=== PATIENT | male | born 1975 | race Caucasian/White ===

== ENCOUNTER 2019-10-13 15:17 | Emergency (ER) | payer BC ==
--- NOTE | 2019-10-13 15:27 | ERPHSYRPT ---
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 Patient does have a history of asthma. He is concerned about a prior exposure to COVID-19. However he is not certain. Has a history of hypertension as well. He is noticed some left-sided chest pain the last few days. He also has seasonal, environmental allergies and this may be the reason for his cough and sore throat symptoms. Asking for chest x-ray, EKG and as well as testing for the COVID 19 virus. Was treated via phone consultation by Dr. Hill, his primary care provider yesterday, and was placed on Zithromax orally. Timing/Duration: gradual onset (2 days ago), persistent Severity: moderate ENT Location: nose (General), throat Prearrival Treatment: prescription meds (Zithromax) Modifying Factors: Improves With: coughing Associated Symptoms: ear pain (R), ear pain (L), cough, sore throat, other ( Congestion) Allergies/Adverse Reactions: No Known Drug Allergies Allergy (Verified 10/13/19 15:36) Home Medications: Carvedilol 6.25 mg [Coreg 6.25 MG] 6.25 mg PO BID 03/19/15 [History] Levalbuterol Tartrate [Xopenex Hfa] 15 gm IH TID PRN 03/19/15 [History] Lisinopril 5 mg [Zestril 5 MG] 2.5 mg PO DAILY 03/19/15 [History] Omeprazole 20 MG [Prilosec 20 mg] 20 mg PO DAILY 03/19/15 [History] Pravastatin Sodium 40 mg PO QHS 03/19/15 [History] Hx Tetanus, Diphtheria Vaccination/Date Given: No Hx Influenza Vaccination/Date Given: Yes (March 2015) Hx Pneumococcal Vaccination/Date Given: No Travel Risk - International Travel Have you traveled outside of the country in past 3 weeks: No Have you or anyone close to you been diagnosed with or: No Do your reside in a community with a known COVID-19 case?: Yes If Yes where:: [facility] - Coronavirus Screening Has patient experienced Coronavirus symptoms: No - Review of Systems Constitutional: No Symptoms Eyes: No Symptoms Ears, Nose, & Throat: Nose Congestion, Throat Pain Respiratory: Cough Cardiac: No Symptoms Abdominal/Gastrointestinal: No Symptoms Genitourinary Symptoms: No Symptoms Musculoskeletal: No Symptoms Skin: No Symptoms Neurological: No Symptoms Psychological: No Symptoms Endocrine: No Symptoms Hematologic/Lymphatic: No Symptoms Immunological/Allergic: No Symptoms All Other Systems: Reviewed and Negative - Past Medical History Pertinent Past Medical History: Yes Neurological History: Migraines ENT History: No Pertinent History Cardiac History: High Cholesterol, Hypertension Respiratory History: Asthma, Sleep Apnea Endocrine Medical History: No Pertinent History Musculoskeletal History: No Pertinent History GI Medical History: Irritable Bowel History: Other Psycho-Social History: No Pertinent History Male Reproductive Disorders: No Pertinent History Other Medical History: Kidney stones - Past Surgical History Past Surgical History: Yes Neuro Surgical History: No Pertinent History Cardiac: No Pertinent History Respiratory: No Pertinent History Gastrointestinal: No Pertinent History Genitourinary: No Pertinent History Musculoskeletal: Orthopedic Surgery Male Surgical History: Vasectomy Other Surgical History: Right shoulder repair of ligaments. Left knee arthroscopic surgery, tonsillectomy. - Social History Smoking Status: Never smoker Exposure to second hand smoke: No Drug Use: none Patient Lives Alone: No - Nursing Vital Signs Nursing Vital Signs: Initial Vital Signs Temperature 96.7 F 10/13/19 15:38 Pulse Rate 88 10/13/19 15:38 Respiratory Rate 18 10/13/19 15:38 Blood Pressure 152/86 10/13/19 15:38 O2 Sat by Pulse Oximetry 99 10/13/19 15:38 Pain Scale Pain Intensity 0 - Physical Exam General Appearance: no apparent distress, alert, anxiety Eye Exam: bilateral eye: normal inspection, PERRL, EOMI Ear Exam: bilateral ear: auricle normal, canal normal, TM normal Nasal Exam: normal inspection Throat Exam: normal, pharynx normal Neck Exam: normal inspection, non-tender, supple, full range of motion, trachea midline, No lymphadenopathy (R), No lymphadenopathy (L) Cardiovascular/Respiratory Exam: chest non-tender, normal breath sounds, regular rate/rhythm, heart sounds normal, no respiratory distress Abdominal Exam: non-tender Neurologic Exam: alert, oriented x 3, cooperative, 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, normal mood/affect, nml cerebellar function, nml station & gait Skin Exam: normal color, warm, dry SpO2 Interpretation: normal O2 Delivery: Room Air - Course Nursing assessment & vital signs reviewed: Yes EKG Interpreted by Me: RATE (79), Sinus Rhythm, NORMAL AXIS, NORMAL INTERVALS, NORMAL QRS, Non-specific ST Changes, Other (There are no significant changes when compared to EKG dated 03/20/2015) Ordered Tests: Active Orders 24 hr Category Date Time Status Impregnator Electrolytic Capacitors STAT Care 10/13/19 16:19 Active EKG-ER Only STAT Care 10/13/19 16:19 Active Pulse Oximetry (ED) STAT Care 10/13/19 16:19 Active CHEST 1 VIEW (PORTABLE) Stat Exams 10/13/19 16:19 Completed CBC W DIFF Stat Lab 10/13/19 16:50 Completed CMP Stat Lab 10/13/19 16:50 Completed TROPONIN Q3H Lab 10/13/19 16:30 Completed TROPONIN Q3H Lab 10/13/19 19:30 Ordered TROPONIN Q3H Lab 10/13/19 22:30 Ordered TROPONIN Q3H Lab 10/14/19 01:30 Ordered TROPONIN Q3H Lab 10/14/19 04:30 Ordered Lab/Rad Data: Laboratory Result Diagrams 10/13/19 16:50 10/13/19 16:50 Laboratory Results 10/13/19 10/13/19 10/13/19 Range/Units 16:50 16:50 16:30 WBC 8.8 (4.0-10.5) K/mm3 RBC 5.17 (4.1-5.6) M/mm3 Hgb 16.1 (12.5-18.0) gm/dl Hct 49.2 (42-50) % MCV 95.2 (78-100) fl MCH 31.1 (26-32) pg MCHC 32.7 (32-36) g/dl RDW 13.2 (11.5-14.0) % Plt Count 211 (150-450) K/mm3 MPV 11.2 H (7.5-11.0) fl Gran % 63.0 (36.0-66.0) % Eos # (Auto) 0.11 (0-0.5) Absolute Lymphs (auto) 2.35 (1.0-4.6) Absolute Monos (auto) 0.75 (0.0-1.3) Lymphocytes % 26.9 (24.0-44.0) % Monocytes % 8.6 (0.0-12.0) % Eosinophils % 1.3 (0.00-5.0) % Basophils % 0.2 (0.0-0.4) % Absolute Granulocytes 5.52 (1.4-6.9) Basophils # 0.02 (0-0.4) Sodium 141 (137-145) mmol/L Potassium 4.0 (3.5-5.1) mmol/L Chloride 100 (98-107) mmol/L Carbon Dioxide 29 (22-30) mmol/L Anion Gap 15.5 H (5-15) MEQ/L BUN 11 (9-20) mg/dL Creatinine 1.01 (0.66-1.25) mg/dL Estimated GFR > 60.0 ML/MIN Glucose 103 (74-106) mg/dL Calcium 10.3 H (8.4-10.2) mg/dL Total Bilirubin 1.10 (0.2-1.3) mg/dL AST 45 (17-59) U/L ALT 50 (0-50) U/L Alkaline Phosphatase 75 (38-126) U/L Troponin I < 0.012 (0.000-0.034) ng/mL Serum Total Protein 8.6 H (6.3-8.2) g/dL Albumin 5.0 (3.5-5.0) g/dL - Progress Progress: unchanged, re-examined Progress Note: 10/13/19 17:00 Chest x-ray reveals no acute process Counseled pt/family regarding: lab results, diagnosis, need for follow-up, rad results - Departure Departure Disposition: Home Clinical Impression: Upper respiratory infection Condition: Stable Critical Care Time: No Referrals: BAUDILIO INGRAM [Family Provider] - Additional Instructions: Plenty of fluids. Take medication as prescribed. Continue your Zithromax antibiotics. Follow-up with primary care doctor for further management Prescriptions: Hydrocodone Bit/Acetaminophen [Hydrocodone-Acetaminophen Soln] 10 ml PO Q6H # 120 ml Prednisone 10 mg [Deltasone 10 mg] 10 mg PO TID #12 tablet
--- NOTE | 2019-10-13 16:42 | XRAY ---
Indication: Cough and sore throat. Comparison: March 19, 2015. Portable apical lordotic chest again demonstrates normal heart, lungs, and bony thorax with incidental small left upper lung calcified granuloma.
[2019-10-13 17:01] LABS: Absolute Neutrophil Ct (ANC) 5.52 (1.4-6.9); BASOPHIL % 0.2 % (0.0-0.4); Basophil (Absolute #) 0.02 (0-0.4); Eosinophil % 1.3 % (0.00-5.0); Eosinophil (Absolute #) 0.11 (0-0.5); Hematocrit 49.2 % (42-50); Hemoglobin 16.1 gm/dl (12.5-18.0); Lymphocyte (Absolute #) 2.35 (1.0-4.6); Lymphocytes % 26.9 % (24.0-44.0); Mean Cell Volume 95.2 fl (78-100); Mean Corpuscular Hemoglobin 31.1 pg (26-32); Mean Corpuscular Hgb Concent. 32.7 g/dl (32-36); Mean Platelet Volume 11.2 fl (7.5-11.0); Monocyte (Absolute #) 0.75 (0.0-1.3); Monocytes % 8.6 % (0.0-12.0); Platelet Count 211 K/mm3 (150-450); Red Blood Count 5.17 M/mm3 (4.1-5.6); Red Cell Distribution Width 13.2 % (11.5-14.0); White Blood Count 8.8 K/mm3 (4.0-10.5)
[2019-10-13 17:19] LABS: ALKALINE PHOSPHATASE 75 U/L (38-126); ANION GAP 15.5 MEQ/L (5-15); BLOOD UREA NITROGEN 11 mg/dL (9-20); CHLORIDE 100 mmol/L (98-107); Calcium 10.3 mg/dL (8.4-10.2); Carbon Dioxide 29 mmol/L (22-30); Creatinine 1 1.01 mg/dL (0.66-1.25); Glucose 103 mg/dL (74-106); SGOT/AST 45 U/L (17-59); SGPT/ALT 50 U/L (0-50); SODIUM 141 mmol/L (137-145); Total Protein 8.6 g/dL (6.3-8.2)
[2019-10-13 19:22] VITALS: BP 130/92; PULSE 76; O2SAT 99
== END 2019-10-13 19:22 | disposition home or self-care (01) ==
LOC: ED 15:17
DX: J06.9 Acute upper respiratory infection, unspecified (principal); I10 Essential (primary) hypertension; E78.00 Pure hypercholesterolemia, unspecified; J45.909 Unspecified asthma, uncomplicated; G47.30 Sleep apnea, unspecified; Z87.442 Personal history of urinary calculi; Z79.899 Other long term (current) drug therapy
CPT/HCPCS: 36415; 71045; 80053; 84484; 85025; 93005; 93041; 94760; 99284; U0003

== ENCOUNTER 2021-01-29 02:49 | Emergency (ER) | payer BC ==
--- NOTE | 2021-01-29 03:11 | ERPHSYRPT ---
- History of Present Illness Time Seen by Provider: 01/29/21 03:11 Source: patient Exam Limitations: no limitations Patient Subjective Stated Complaint: ears stopped up x2 days, cough started yesterday Triage Nursing Assessment: pt c/o ears being stopped up x2 days, thinks it could be swimmers ear but does have some pain in ears. Pt has a dry cough, a burning cough and also has heartburn. Pt is very anxious about covid. Is due for his second shot today. Lungs clear throughout. Pt thinks alot of this is heartburn, had no medicine to take for it. Physician History: This is a 45-year-old white male patient of Dr. Cintron who presents with sore throat, cough and bilateral ear pressure for approximately 2 days. Patient has a history of hypertension, gastroesophageal reflux and hypercholesterolemia. He denies chest pain. He denies shortness of breath. He has had no nausea vomiting or diarrhea. Timing/Duration: day(s) (2) Cough Quality/Degree: mild, dry cough Possible Cause: no prior episodes Modifying Factors: Improves With: activity Associated Symptoms: cough Allergies/Adverse Reactions: No Known Drug Allergies Allergy (Verified 01/29/21 03:04) Home Medications: Carvedilol 6.25 mg [Coreg 6.25 MG] 6.25 mg PO BID 03/19/15 [History] Lisinopril 5 mg [Zestril 5 MG] 5 mg PO DAILY 03/19/15 [History] Pravastatin Sodium 80 mg PO QHS 03/19/15 [History] Hx Tetanus, Diphtheria Vaccination/Date Given: Yes Hx Influenza Vaccination/Date Given: Yes Hx Pneumococcal Vaccination/Date Given: No Immunizations Up to Date: Yes Travel Risk - International Travel Have you traveled outside of the country in past 3 weeks: No - Coronavirus Screening Symptoms: Cough: New Onset Close contact with a COVID-19 positive Pt in past 14-21 Days: No - Vaccine Status Have you recieved a Covid-19 vaccination: Yes 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 - Vaccination Dates Date of 2cond Vaccination (if applicable): n/a Comment: is due for second shot today - Review of Systems Constitutional: No Symptoms Eyes: No Symptoms Ears, Nose, & Throat: Throat Pain, Other (Bilateral ear pressure) Respiratory: Cough Cardiac: No Symptoms Abdominal/Gastrointestinal: No Symptoms Genitourinary Symptoms: No Symptoms Musculoskeletal: No Symptoms Skin: No Symptoms Neurological: No Symptoms Psychological: No Symptoms Endocrine: No Symptoms Hematologic/Lymphatic: No Symptoms Immunological/Allergic: No Symptoms All Other Systems: Reviewed and Negative - Past Medical History Pertinent Past Medical History: Yes Neurological History: Migraines ENT History: No Pertinent History Cardiac History: High Cholesterol, Hypertension Respiratory History: Asthma, Sleep Apnea Endocrine Medical History: No Pertinent History Musculoskeletal History: No Pertinent History GI Medical History: GERD, Gallbladder Disease, Irritable Bowel History: Other Psycho-Social History: No Pertinent History Male Reproductive Disorders: No Pertinent History Other Medical History: Kidney stones - Past Surgical History Past Surgical History: Yes Neuro Surgical History: No Pertinent History Cardiac: No Pertinent History Respiratory: No Pertinent History Gastrointestinal: Cholecystectomy Genitourinary: No Pertinent History Musculoskeletal: Orthopedic Surgery Male Surgical History: Vasectomy Other Surgical History: Right shoulder repair of ligaments. Left knee arthroscopic surgery, tonsillectomy. - Social History Smoking Status: Never smoker Exposure to second hand smoke: No Drug Use: none Patient Lives Alone: No - Nursing Vital Signs Nursing Vital Signs: Initial Vital Signs Temperature 98.2 F 01/29/21 02:54 Pulse Rate 85 01/29/21 02:54 Respiratory Rate 22 01/29/21 02:54 Blood Pressure 150/117 01/29/21 02:54 O2 Sat by Pulse Oximetry 99 01/29/21 02:54 Pain Scale Pain Intensity 3 - Physical Exam General Appearance: no apparent distress, alert, anxiety Eye Exam: PERRL/EOMI, eyes nml inspection Ears, Nose, Throat Exam: normal ENT inspection, TMs normal, moist mucous membranes Neck Exam: normal inspection, non-tender, supple, full range of motion Respiratory Exam: normal breath sounds, lungs clear, airway intact, No chest tenderness, No respiratory distress Cardiovascular Exam: regular rate/rhythm, normal heart sounds, normal peripheral pulses Gastrointestinal/Abdomen Exam: soft, normal bowel sounds, No tenderness Rectal Exam: not done Back Exam: normal inspection, normal range of motion, No CVA tenderness, No vertebral tenderness Extremity Exam: normal inspection, normal range of motion, pelvis stable Neurologic Exam: alert, oriented x 3, cooperative, document review specialist II-XII nml as tested, normal mood/affect, nml cerebellar function, nml station & gait, sensation nml Skin Exam: normal color, warm, dry Lymphatic Exam: No adenopathy SpO2 Interpretation: normal SpO2: 99 O2 Delivery: Room Air - Course Nursing assessment & vital signs reviewed: Yes Ordered Tests: Active Orders 24 hr Category Date Time Status CHEST 1 VIEW (PORTABLE) Stat Exams 01/29/21 03:12 Taken INFLUENZA A+B ANIL Stat Lab 01/29/21 03:35 Completed Lab/Rad Data: Laboratory Results 01/29/21 01/29/21 Range/Units 03:35 03:35 Influenza Type A Ag NEGATIVE (NEGATIVE) Influenza Type B Ag NEGATIVE (NEGATIVE) Group A Strep Antibody NOT DETECTED (NEGATIVE) - Departure Departure Disposition: Home Clinical Impression: Bronchitis Condition: Stable Critical Care Time: No Referrals: RAJNI CINTRON MD [Primary Care Provider] - Additional Instructions: Drink plenty of fluids. Quarantine yourself. Follow-up with your primary care physician for COVID-19 test results Prescriptions: Hydrocodone/Acetaminophen [Hydrocodone-Acetamn 7.5-325/15] 10 ml PO Q8H PRN PRN #120 ml MDD 30 ml PRN Reason: Cough Prednisone 10 mg [Deltasone 10 mg] 10 mg PO TID #12 tablet Albuterol 2.5 mg/3 ml Neb [Proventil 2.5 mg/3 ml Neb] 2.5 mg IH Q6H #25
[2021-01-29 03:54] LABS: INFLUENZA A NEGATIVE (NEGATIVE); INFLUENZA B NEGATIVE (NEGATIVE)
[2021-01-29 04:38] VITALS: BP 136/94; PULSE 78; O2SAT 99
[2021-01-29] MEDS ORDERED: HYDROCODONE-ACETAMIN 2.5-108/5 ML SOLUTION PO STA (04:41)
[2021-01-29] MEDS ORDERED: HYDROCODONE-ACETAMIN 2.5-108/5 ML SOLUTION ONE (04:44)
--- NOTE | 2021-01-29 08:57 | XRAY ---
Indication: Cough. Comparison: October 13, 2019 Portable apical lordotic chest again demonstrates normal heart, lungs, and bony thorax.
== END 2021-01-29 04:55 | disposition home or self-care (01) ==
LOC: ED 02:49
DX: J40 Bronchitis, not specified as acute or chronic (principal); R05 Cough; J02.9 Acute pharyngitis, unspecified; I10 Essential (primary) hypertension; E78.00 Pure hypercholesterolemia, unspecified
CPT/HCPCS: 71045; 87400; 87651; 99284; U0003; A9270-GY